=== PATIENT | female | born 1975 | race Caucasian/White ===

== ENCOUNTER 2021-11-28 09:10 | Emergency (ER) | payer BC ==
[~2021-11-28] VITALS: Ht 172.7 cm; Wt 80.0 kg
[2021-11-28 10:29] LABS: Basophils # (auto) 0 10 ^3/uL (0-0.2); Basophils % (auto) 0.2 % (0.0-2.0); Eosinophils # (auto) 0 10 ^3/uL (0-0.8); Eosinophils % (auto) 0.1 % (0.0-7.0); Hematocrit 38.2 % (36.0-46.0); Hemoglobin 12.4 g/dL (12.2-16.2); Lymphocytes # (auto) 0.2 10 ^3/uL (0.4-5.4); Mean Corpuscular Hgb Conc. 32.4 g/dL (32.0-36.0); Mean Corpuscular Volume 89.4 fL (80.0-100.0); Monocytes # (auto) 0.2 10 ^3/uL (0-1.3); Monocytes % (auto) 5.7 % (0.0-12.0); Neutrophils # (auto) 3.1 10 ^3/uL (1.6-8.6); Red Blood Cells 4.27 10^6/uL (4.0-5.20); White Blood Cell 3.5 10^3/uL (4.4-10.8)
[2021-11-28 10:38] LABS: Albumin 2.9 g/dL (3.4-5.0); Calcium 8.7 mg/dL (8.5-10.1); Potassium 3.4 mmol/L (3.5-5.1)
[2021-11-28 10:41] LABS: BUN/Creatinine Ratio 14.1; Bilirubin, Total 0.7 mg/dL (0.2-1.0); Total Protein 5.5 g/dL (6.4-8.2)
[2021-11-28] MEDS ORDERED: SODIUM CHLORIDE 0.9% 1,000 ML IVB ONE (11:00)
[2021-11-28] MEDS ORDERED: ONDANSETRON HCL 4 MG/2 ML VIAL IV ONE ×2 (11:15→16:45)
[2021-11-28] MEDS ORDERED: MORPHINE SULFATE INJ 2 MG/ml SYRG IV ONE (11:15)
[2021-11-28 11:55] LABS: Magnesium 1.7 mg/dL (1.6-2.6)
[2021-11-28 12:22] LABS: Urine Bacteria FEW /hpf (None Seen); Urine Blood Negative /uL (Negative); Urine Mucus FEW (None Seen); Urine Specific Gravity 1.021 (1.001-1.035); Urine WBC 15 /hpf (0 - 5)
[2021-11-28] MEDS ORDERED: MEPERIDINE HCL (50 MG/ML) 1 ML VIAL IV ONE (16:45)
[2021-11-28] MEDS ORDERED: cefTRIAXone 1GM/50ML D5W 50 ML IV ONE (16:45)
[2021-11-28] MEDS ORDERED: SODIUM CHLORIDE 0.9% 1,000 ML IV ONE (18:00)
[2021-11-29] MEDS ORDERED: fentaNYL CITRATE 100 MCG/2 ML VL IM ONE (02:45)
[2021-11-29] MEDS ORDERED: SODIUM CHLORIDE 0.9% 1,000 ML IV ONE (02:45)
[2021-11-29] MEDS ORDERED: PROMETHAZINE HCL 25 MG/ML 1ML IV ONE (12:15)
[2021-11-29] MEDS ORDERED: HYDROmorphone HCL 2 MG/ML VL/or syr IV ONE (12:15)
[2021-11-29] MEDS ORDERED: metroNIDAZOLE 500MG/100ML 100 ML IV ONE (13:00)
[2021-11-29] MEDS ORDERED: cefTRIAXone 1GM/50ML D5W 50 ML IV ONE (13:00)
[2021-11-29 13:47] VITALS: BP 109/58
== END 2021-11-29 14:04 | disposition short-term general hospital (02) ==
LOC: ER 09:10 → EDBD 09:10 → ER 11-29 14:04
DX: N39.0 Urinary tract infection, site not specified (principal); R74.01 Elevation of levels of liver transaminase levels; K76.0 Fatty (change of) liver, not elsewhere classified; R10.2 Pelvic and perineal pain; E46 Unspecified protein-calorie malnutrition; F17.210 Nicotine dependence, cigarettes, uncomplicated; Z90.49 Acquired absence of other specified parts of digestive tract; Z98.84 Bariatric surgery status; Z20.822 Contact with and (suspected) exposure to COVID-19
CPT/HCPCS: 36415; 71046; 74176; 76705; 80053; 81001; 83690; 83735; 84702; 85025; 87426; 93005; 96361; 96365; 96366; 96368; 96372; 96375; 96376; 99285; J0696; J1170; J2175; J2270; J2405; J2550; J3010; J3490; J7030